=== PATIENT | female | born 1940 | race Caucasian/White ===

== ENCOUNTER → 2018-05-30 | Outpatient (CLI) | payer OTHER ==
[~2018-05-30] MED LIST: LEVSOD88 PO; MAGGLU250 PO; MULVITMIND PO; POLY17UD PO
[2018-06-03 14:08] LABS: HPV 16 Negative (Negative); HPV 18 Negative (Negative); HPV OTHER HR TYPES Negative (Negative)
== END | disposition home or self-care (01) ==
LOC: LAB 12:06 → LAB SHORT 12:06
PROVIDERS: Obstetrics & Gynecology Gynecology
DX: Z91.89 Other specified personal risk factors, not elsewhere classified (principal)
CPT/HCPCS: 87624; G0123

== ENCOUNTER 2020-08-10 11:22 | Day surgery (SDC) | payer OTHER ==
[~2020-08-10] VITALS: Ht 149.9 cm; Wt 54.5 kg
[2020-08-10] MEDS ORDERED: ALEN70 (12:06)
[2020-08-10] MEDS ORDERED: CALCIUM 600 +1 EA11 (12:07)
--- NOTE | 2020-08-10 12:18 | NUR ---
08/10/20 1218 Elise Huber FIRST ATTEMPT MISSED BY SHE IN THE RIGHT FOREARM. SECOND ATTEMPT SUCCESSFUL BY RN IN RIGHT FOREARM. PT TOW.
== END 2020-08-10 14:16 | disposition home or self-care (01) ==
LOC: ORSCSDS 11:22
PROVIDERS: Internal Medicine Gastroenterology
PROC: 0DBH8ZX Excision of Cecum, Via Natural or Artificial Opening Endoscopic, Diagnostic (ICD-10-PCS; principal; 2020-08-10 13:00)
PROC: 0DBL8ZX Excision of Transverse Colon, Via Natural or Artificial Opening Endoscopic, Diagnostic (ICD-10-PCS; principal; 2020-08-10 13:00)
DX: Z12.11 Encounter for screening for malignant neoplasm of colon (principal); D12.0 Benign neoplasm of cecum; D12.3 Benign neoplasm of transverse colon; K57.30 Diverticulosis of large intestine without perforation or abscess without bleeding; K64.8 Other hemorrhoids; Z86.010 Personal history of colon polyps
CPT/HCPCS: 88305; J2704; J7120